=== PATIENT | female | born 1955 | race Caucasian/White ===

== ENCOUNTER 2017-04-08 11:13 | Emergency (ER) | payer MEDICAID, OTHER ==
[~2017-04-08] VITALS: Ht 170.2 cm; Wt 63.8 kg
[2017-04-08] MEDS ORDERED: LORazepam 1MG TABLET ONE (12:16)
[2017-04-08] MEDS ORDERED: LORazepam 1MG TABLET PO ONE (12:30)
[2017-04-08 13:29] VITALS: BP 135/87
== END 2017-04-08 13:33 | disposition home or self-care (01) ==
LOC: ED 13:27
DX: F41.1 Generalized anxiety disorder (principal)
CPT/HCPCS: 93005; 99284

== ENCOUNTER 2018-10-28 02:53 | Emergency (ER) | payer MEDICAID ==
[~2018-10-28] VITALS: Ht 170.2 cm; Wt 71.6 kg
[~2018-10-28 02:53] MED LIST: ATOM80CA PO; FERR324T5 PO; FLUO40CA2 PO; LORA1TAB PO; MIRT15TA6 PO; OLAN10TA9 PO; THIA100T27 PO
[2018-10-28 02:57] VITALS: BP 154/89
--- NOTE | 2018-10-28 03:00 | NUR ---
BIBA. PT STATES "I WAS HAVING A PANIC ATTACK AND IT FEELS LIKE A TRAIN IS GOING THROUGH MY BRAIN, I CALLED THE [facility] AND TALKED TO THE LADY THERE, AND IT FELT LIKE THE OTHER TIME I WAS HAVING A HUGE PANIC ATTACK SO I DECIDED TO CALL THE AMBULANCE." PT. DENIES SI/HI. PT HAS NOT BEEN TAKING MEDS X 3 DAYS. PT'S AOX4. RESPS EVEN AND UNLABORED. CALL LIGHT WITHIN REACH.
[2018-10-28] MEDS ORDERED: LORazepam 1MG TABLET ONE ×2 (03:27→03:30)
[2018-10-28] MEDS ORDERED: LORazepam 1MG TABLET PO ONE (03:30)
--- NOTE | 2018-10-28 04:18 | NUR ---
Patient/Caregiver given discharge instructions and they have confirmed that they understand the instructions. Patient ambulatory with steady gait.
== END 2018-10-28 04:19 | disposition home or self-care (01) ==
LOC: ED 03:43
DX: F41.1 Generalized anxiety disorder (principal); F32.9 Major depressive disorder, single episode, unspecified; Z87.891 Personal history of nicotine dependence
CPT/HCPCS: 93005; 99284

== ENCOUNTER 2020-07-25 16:37 | Emergency (ER) | payer MEDICARE, MEDICAID ==
[~2020-07-25] VITALS: Ht 165.1 cm; Wt 65.0 kg
[~2020-07-25 16:37] MED LIST changes: -MIRT15TA6 PO; +MIRT15TA94 PO
--- NOTE | 2020-07-25 16:50 | NUR ---
PT HAS SI THOUGHTS, " I JUST WANT TO END IT ALL". BEEN HAVING ONGOING THOUGHTS FOR PAST COUPLE MONTHS. TOLD HER THERAPISTS SHE WILL GET A KNIFE AND CUT HERSELF. HX OF BIPOLAR. DENIES CP, SOB, OR COUGH. PT TEARFUL. IN HOSP GOWN, VSS, SECURED ROOM W SITTER. BELONGINGS IN LOCKER
--- NOTE | 2020-07-25 18:00 | NUR ---
PT PLACED ON L2K, PT ON HOSPITAL BED, GIVEN BEVERAGES, BLANKETS. MEAL TRAY ORDERED,
[2020-07-25 18:22] LABS: BASOPHILS % (AUTO) 1 % (0-1); EOSINOPHILS % (AUTO) 2 % (1-7); LYMPHOCYTES % (AUTO) 38 % (22-44); MEAN CORPUSCULAR HEMOGLOBIN 24.5 pg (27.0-34.8); MEAN CORPUSCULAR HGB CONC 31.1 g/dL (32.4-35.8); MEAN PLATELET VOLUME 8.1 fL (7.4-10.4); MONOCYTES % (AUTO) 11 % (2-9); NEUTROPHILS % (AUTO) 48 % (42-75); PLATELET COUNT 255 x10^3/uL (130-400); RED BLOOD COUNT 4.34 x10^6/uL (3.82-5.3); RED CELL DISTRIBUTION WIDTH 17.3 % (9.6-15.2)
[2020-07-25 18:33] LABS: MD NO
[2020-07-25 18:35] LABS: ALBUMIN 3.3 g/dL (3.4-5.0); ANION GAP 5 mmol/L (5-15); CALCIUM 8.6 mg/dL (8.5-10.1); CHLORIDE 108 mmol/L (98-107); CREATININE 0.75 mg/dL (0.55-1.02); SALICYLATE LEVEL < 1.7 mg/dL (2.8-20.0)
--- NOTE | 2020-07-25 18:51 | NUR ---
GIVEN MEAL TRAY. PT REMINDED OF UA
--- NOTE | 2020-07-25 18:57 | NUR ---
REPORT FROM KRISTA JAMES
--- NOTE | 2020-07-25 19:11 | NUR ---
PT PROVIDED URINE SAMPLE. SENT TO LAB. PT RESTING ON HOSPITAL BED. SITTER AT [facility]WAY FOR LARRY.
--- NOTE | 2020-07-25 19:16 | NUR ---
PT EATING DINNER TRAY
[2020-07-25 19:20] LABS: MICROSCOPIC NOT IND
--- NOTE | 2020-07-25 19:24 | NUR ---
UNABLE TO OBTAIN HOME MEDS. PT STATES "THERE ARE SO MANY OF THEM" PT UNALBE TO NAME ANY OF THEM TO ME. SHE STATES "MAYBE I'LL REMEMBER TOMORROW"
[2020-07-25 19:29] VITALS: BP 155/90
[2020-07-25] MEDS ORDERED: ONDANSETRON 2MG/ML, 2ML IVPush ONE (19:30)
[2020-07-25] MEDS ORDERED: SODIUM CHLORIDE FLUSH 10ML SYR IVF ONE (19:30)
[2020-07-25] MEDS ORDERED: MORPHINE SULFATE 4 MG/ML, 1ML IVPush PRN (19:30)
[2020-07-25 19:35] LABS: AMPHETAMINE SCREEN, URINE Negative (Negative); BARBITURATE SCREEN, URINE Negative (Negative); BENZODIAZEPINE SCREEN, URINE Negative (Negative); CANNABINOID SCREEN, URINE Negative (Negative); COCAINE SCREEN, URINE Negative (Negative); METHADONE SCREEN, URINE Negative (Negative); OPIATE SCREEN, URINE Negative (Negative)
--- NOTE | 2020-07-25 19:47 | NUR ---
PACKET FAXED TO [facility], [place], [facility], [facility], AND [facility].
--- NOTE | 2020-07-25 20:47 | NUR ---
CELINA FROM [facility] ACCEPTING WITH [facility]
--- NOTE | 2020-07-25 20:58 | NUR ---
REPORT TO KRISTA GUILLERMO. SHE STATES PT CAN COME OVER IN ABOUT AN HOUR
--- NOTE | 2020-07-25 21:18 | NUR ---
TASK RN: PCS FORM FAXED TO [facility] FOR TRANSPORT TO [facility].
--- NOTE | 2020-07-25 21:38 | NUR ---
SPOKE C ONEL AT [facility] TO ARRANGE TRANSPORT FOR PT TO [facility]
== END 2020-07-25 22:17 ==
LOC: ED 18:11
DX: R45.851 Suicidal ideations (principal); F32.9 Major depressive disorder, single episode, unspecified; M19.90 Unspecified osteoarthritis, unspecified site; F17.200 Nicotine dependence, unspecified, uncomplicated; Z91.14 Patient's other noncompliance with medication regimen
CPT/HCPCS: 36415; 80048; 80307; 81003; 82040; 85025; 99285